=== PATIENT | female | born 1975 | race Caucasian/White ===

== ENCOUNTER 2019-11-12 12:32 | Emergency (ER) | payer OTHER ==
[~2019-11-12] VITALS: Ht 160 cm; Wt 54.4 kg
[2019-11-12 12:46] VITALS: BP 131/84
--- NOTE | 2019-11-12 13:53 | NUR ---
KOBI PALMA AT BEDSIDE FOR VOLAR SPLINT
== END 2019-11-12 14:28 | disposition home or self-care (01) ==
LOC: ER 12:34
DX: S62.336A Displaced fracture of neck of fifth metacarpal bone, right hand, initial encounter for closed fracture (principal); W22.01XA Walked into wall, initial encounter; Y93.89 Activity, other specified; Y92.89 Other specified places as the place of occurrence of the external cause; Y99.8 Other external cause status
CPT/HCPCS: 73130-TC